=== PATIENT | female | born 1965 | race Caucasian/White ===

== ENCOUNTER 2017-12-30 10:57 | Emergency (ER) | payer OTHER ==
[~2017-12-30] VITALS: Ht 162.6 cm; Wt 84.5 kg
[2017-12-30 11:01] VITALS: BP 169/77; PULSE 83; TEMP 98
[2017-12-30] MEDS ORDERED: CEPHALEXIN500 M1 PO (11:53)
[2017-12-30] MEDS ORDERED: LEVAQUIN 5500 MG/TA1 PO (11:53)
== END 2017-12-30 12:39 | disposition home or self-care (01) ==
LOC: COL.ER 10:57
DX: S91.131A Puncture wound without foreign body of right great toe without damage to nail, initial encounter (principal); Z23 Encounter for immunization; W45.0XXA Nail entering through skin, initial encounter